=== PATIENT | male | born 1995 | race Caucasian/White ===

== ENCOUNTER → 2018-07-17 15:37 | Emergency (ER) | payer MEDICAID ==
[2018-07-17 15:50] VITALS: BP 132/76
== END | disposition home or self-care (01) ==
LOC: ED 15:37
DX: S09.90XA Unspecified injury of head, initial encounter (principal); X58.XXXA Exposure to other specified factors, initial encounter; Y92.9 Unspecified place or not applicable; Z53.21 Procedure and treatment not carried out due to patient leaving prior to being seen by health care provider
CPT/HCPCS: 72050; 72070; 99282

== ENCOUNTER 2018-09-25 12:35 | Emergency (ER) | payer MEDICAID ==
[2018-09-25] MEDS ORDERED: DOXYcycline CAP(*) 100 MG PO ONE (14:17)
--- NOTE | 2018-09-25 14:23 | ED ---
Skin Complaint - HPI Summary HPI Summary: Patient is a 22-year-old male who presents to the ED with left lateral leg swelling, erythema and warmth 2 days. He states the area has been enlarging. He did not see a tick bite, however has been in the [place] for the past several weeks. Denies history of tick bites or Lyme disease. Has never had anything like this before. Denies any fevers, sweats, chills, body aches, visual changes or headaches. - History of Current Complaint Chief Complaint: EDAnimalBite Time Seen by Provider: 09/25/18 13:06 Stated Complaint: TICK BITE/POSS LYME/HARD TO WALK PER PT Hx Obtained From: Patient Onset/Duration: Started Hours Ago Skin Exposure Onset/Duration: Hours Ago Timing: Constant Onset Severity: Moderate Current Severity: Moderate Pain Intensity: 8 Pain Scale Used: 0-10 Numeric Skin Location: Leg Character: Swelling, Pain, Redness, Raised, Painful Aggravating Symptom(s): Nothing Alleviating Symptom(s): Nothing Associated Signs & Symptoms: Negative - Allergy/Home Medications Allergies/Adverse Reactions: Allergies Allergy/AdvReac Type Severity Reaction Status Date / Time No Known Allergies Allergy Verified 09/25/18 12:41 PMH/Surg Hx/FS Hx/Imm Hx Previously Healthy: Yes Endocrine/Hematology History: Denies: Hx Diabetes, Hx Thyroid Disease Cardiovascular History: Denies: Hx Hypertension Respiratory History: Denies: Hx Asthma, Hx Chronic Obstructive Pulmonary Disease (COPD) GI History: Denies: Hx Ulcer - Surgical History Surgery Procedure, Year, and Place: robert removed from the side of his face. - Immunization History Hx Pertussis Vaccination: No Immunizations Up to Date: Yes Infectious Disease History: No Infectious Disease History: Denies: Hx Hepatitis, Hx Human Immunodeficiency Virus (HIV), Traveled Outside the [place] in Last 30 Days - Social History Lives: With Family Alcohol Use: in rehab Hx Substance Use: Yes Substance Use Type: Reports: Marijuana Smoking Status (MU): Former Smoker Review of Systems Negative: Fever, Chills, Fatigue, Skin Diaphoresis Negative: Palpitations, Chest Pain Negative: Shortness Of Breath Negative: Vomiting, Diarrhea, Nausea Negative: Arthralgia, Myalgia Positive: Other - EM rash to the left lateral leg Neurological: Negative All Other Systems Reviewed And Are Negative: Yes Physical Exam Triage Information Reviewed: Yes Vital Signs On Initial Exam: Initial Vitals Temp Pulse Resp BP Pulse Ox 98.2 F 86 16 142/78 97 09/25/18 12:38 09/25/18 12:38 09/25/18 12:38 09/25/18 12:38 09/25/18 12:38 Vital Signs Reviewed: Yes Appearance: Positive: Well-Appearing, Well-Nourished Skin: Positive: Warm, Skin Color Reflects Adequate Perfusion, Other - erythematous area with warmth and swelling measuring 6cm in diameter with central clearing Head/Face: Positive: Normal Head/Face Inspection Eyes: Positive: EOMI, ANUPAMA Neck: Positive: Supple, No Lymphadenopathy Respiratory/Lung Sounds: Positive: Clear to Auscultation, Breath Sounds Present Cardiovascular: Positive: RRR, Pulses are Symmetrical in both Upper and Lower Extremities Musculoskeletal: Positive: Normal, Strength/ROM Intact Neurological: Positive: Speech Normal Psychiatric: Positive: Affect/Mood Appropriate AVPU Assessment: Alert Diagnostics - Vital Signs Vital Signs Temp Pulse Resp BP Pulse Ox 09/25/18 12:38 98.2 F 86 16 142/78 97 - Laboratory Lab Statement: Any lab studies that have been ordered have been reviewed, and results considered in the medical decision making process. Course/Dx - Course Course Of Treatment: On physical examination, there is a 6 cm in diameter erythematous, warm, circular rash with central clearing indicative of an EM rash from a tick bite to the left lateral side of the leg. denies any other complaints or concerns. Patient is given a 2 week course of doxycycline 100 mg twice daily. First dose given to him here in the ED. He will follow up with Dr. Bazan. - Differential Diagnoses - Skin Complaint Differential Diagnoses: Other - but bite, tick bite, cellulitis - Diagnoses Provider Diagnoses: Erythema migrans (Lyme disease) Discharge - Sign-Out/Discharge Documenting (check all that apply): Patient Departure Patient Received Moderate/Deep Sedation with Procedure: No - Discharge Plan Condition: Stable Disposition: HOME Prescriptions: DOXYcycline CAP(*) [DOXYcycline 100MG CAP(*)] 100 mg PO BID #14 cap Patient Education Materials: Doxycycline (By mouth), Lyme Disease (ED) Referrals: Jody PENA,Mike Abarca [Medical Doctor] - No Primary Care Phys,NOPCP [Primary Care Provider] - Additional Instructions: Please follow up with Dr. Bazan next week for further evaluation and treatment - Billing Disposition and Condition Condition: STABLE Disposition: Home
[2018-09-25 14:26] VITALS: BP 135/76
== END 2018-09-25 14:25 | disposition home or self-care (01) ==
LOC: ED 12:35
DX: A26.0 Cutaneous erysipeloid (principal); Z87.891 Personal history of nicotine dependence
CPT/HCPCS: 99282; A9270-GY